=== PATIENT | female | born 1985 | race Two or more races ===

== ENCOUNTER 2019-07-26 13:15 | Emergency (ER) | payer MEDICAID ==
[~2019-07-26] VITALS: Ht 160 cm; Wt 78.0 kg
[2019-07-26] MEDS ORDERED: LIDOCAINE HCL/PF 1% 10 MG/ML 5ML VIAL IJ ONE (14:00)
[2019-07-26 14:54] VITALS: BP 133/82
== END 2019-07-26 14:57 | disposition home or self-care (01) ==
LOC: ER 13:22
DX: S81.811A Laceration without foreign body, right lower leg, initial encounter (principal); W25.XXXA Contact with sharp glass, initial encounter; Y93.89 Activity, other specified; Y92.018 Other place in single-family (private) house as the place of occurrence of the external cause
CPT/HCPCS: 12002; 99282; J3490

== ENCOUNTER 2024-03-31 07:54 | Emergency (ER) | payer MEDICAID ==
[~2024-03-31] VITALS: Ht 157.5 cm; Wt 75.0 kg
[2024-03-31 07:56] VITALS: PULSE 102; O2SAT 100
[2024-03-31 08:11] VITALS: BP 141/83; RESP 18; TEMP 36.8; O2SAT 100
[2024-03-31 08:59] LABS: BASOPHILS % 0.9 % (0.0-2.0); HEMATOCRIT. 37.7 % (36.0-48.0); HEMOGLOBIN. 12.4 g/dL (12.0-16.0); LYMPHOCYTES % 26.2 % (20.0-50.0); MEAN CORPUSCULAR HEMOGLOBIN 26.7 pg (28.0-32.0); MEAN CORPUSCULAR VOLUME 80.7 fL (81.0-99.0); MEAN PLATELET VOLUME 8.6 fl (7.4-10.4); MONOCYTES % 8.1 % (2.0-8.0); NEUTROPHILS % 61.8 % (40.0-76.0); PLATELET 316 x1000/uL (130-400); RED BLOOD CELL COUNT 4.67 mill/uL (4.2-5.4); RED CELL DISTRIBUTION WIDTH 13.5 % (11.6-14.6); WHITE BLOOD COUNT 7.7 x1000/uL (4.5-11.0)
[2024-03-31 09:01] LABS: CHLORIDE 107 mEq/L (98-107); POTASSIUM 3.7 mEq/L (3.5-5.1); SODIUM 140 mEq/L (136-145)
[2024-03-31] MEDS: MAGNESIUM/ALUMINUM HYDROXIDE/SIMETHICONE 30ML UDC PO ONE (09:01)
[2024-03-31] MEDS: FAMOTIDINE 20MG TABLET PO ONE (09:01)
[2024-03-31 09:02] VITALS: TEMP 98.8
[2024-03-31 09:02] LABS: CALCIUM 8.8 mg/dL (8.7-10.4); CARBON DIOXIDE 26 mEq/L (21-32); HCG SCREEN NEGATIVE
[2024-03-31] MEDS: ACETAMINOPHEN 325MG TABLET PO ONE (09:02)
[2024-03-31] MEDS: ONDANSETRON 4MG ODT PO ONE (09:02)
[2024-03-31 09:07] LABS: CREATININE 0.7 mg/dL (0.6-1.0); GLUCOSE 170 mg/dL (70-105); UREA NITROGEN BLOOD 7 mg/dL (9-23)
[2024-03-31 09:09] LABS: ALANINE AMINOTRANSFERASE 8 IU/L (10-49); ALBUMIN 3.9 g/dL (3.2-4.8); ASPARTATE AMINOTRANSFERASE 16 IU/L (<34); BILIRUBIN DIRECT 0.1 mg/dL (<=3.0); BILIRUBIN TOTAL 0.7 mg/dL (0.1-1.0); PROTEIN TOTAL 6.8 g/dL (6.0-8.3)
== END 2024-03-31 10:30 | disposition home or self-care (01) ==
LOC: ER 07:54
DX: R10.9 Unspecified abdominal pain (principal); K08.89 Other specified disorders of teeth and supporting structures; K76.9 Liver disease, unspecified; N85.2 Hypertrophy of uterus
CPT/HCPCS: 99284; 74176; 80076; 80048; 84703; 83690; 85025; 36415; Q0162